=== PATIENT | female | born 1980 | race Hispanic/Latino ===

== ENCOUNTER 2021-07-27 04:47 | Emergency (ER) | payer OTHER ==
[~2021-07-27] VITALS: Ht 165.1 cm; Wt 86.2 kg
[2021-07-27] MEDS ORDERED: ONDANSETRON 4MG INJ ONE (05:24)
[2021-07-27] MEDS ORDERED: MORPHINE 2 MG SYG ONE (05:24)
[2021-07-27 05:29] LABS: BASOPHILS % (AUTO) 0.4 % (0.0-5.0); HEMATOCRIT 37.9 % (36-48); LYMPHOCYTES % (AUTO) 24.8 % (21.0-51.0); MEAN CORPUSCULAR HEMOGLOBIN 25.1 pg (27.0-33.0); MEAN CORPUSCULAR HGB CONC 31.4 g/dL (32.0-36.0); MONOCYTES % (AUTO) 8.8 % (3.0-13.0); NEUTROPHILS % (AUTO) 64.7 % (40.0-77.0); PLATELET COUNT (AUTO) 183 K/uL (130-400); RED BLOOD CELL COUNT(AUTO) 4.74 MIL/uL (4.00-5.50); RED CELL DISTRIBUTION WIDTH 15.6 % (11.0-15.5); WHITE BLOOD COUNT (AUTO) 6.9 K/uL (4.8-10.8)
[2021-07-27] MEDS ORDERED: MORPHINE 4 MG SYG IVP ONE (05:30)
[2021-07-27] MEDS ORDERED: ONDANSETRON 4MG INJ IVP ONE (05:30)
[2021-07-27] MEDS ORDERED: 0.9%NACL 1000ML 1,000 ML IV ONE (05:30)
[2021-07-27 05:39] LABS: CREATININE 0.8 mg/dL (0.5-1.5); POTASSIUM 3.8 mmol/L (3.5-5.1)
[2021-07-27 05:44] LABS: ALBUMIN 3.8 g/dL (3.5-5.0); BILIRUBIN,TOTAL 0.3 mg/dL (0.2-1.0); TOTAL PROTEIN, SERUM 7.6 g/dL (6.0-8.3)
[2021-07-27 05:48] VITALS: BP 153/90
== END 2021-07-27 06:25 | disposition home or self-care (01) ==
LOC: EDH 04:47
DX: N20.1 Calculus of ureter (principal); Z79.899 Other long term (current) drug therapy
CPT/HCPCS: 36415; 74176; 80053; 83690; 85025; 96374; 96375; 99284; J2405

== ENCOUNTER 2023-01-16 21:07 | Emergency (ER) | payer OTHER ==
[~2023-01-16] VITALS: Ht 167.6 cm; Wt 81.6 kg
[2023-01-16 21:09] VITALS: BP 128/77
== END 2023-01-16 23:28 | disposition left against medical advice (07) ==
LOC: EDH 21:07
DX: R42 Dizziness and giddiness (principal); Z53.21 Procedure and treatment not carried out due to patient leaving prior to being seen by health care provider

== ENCOUNTER 2023-01-17 09:19 | Emergency (ER) | payer OTHER ==
[~2023-01-17] VITALS: Ht 167.6 cm; Wt 82.6 kg
[2023-01-17 09:20] VITALS: BP 114/68
[2023-01-17 09:56] LABS: BASOPHILS % (AUTO) 0.5 % (0.0-5.0); EOSINOPHILS % (AUTO) 1.5 % (0.0-8.0); HEMATOCRIT 21.9 % (36-48); LYMPHOCYTES % (AUTO) 22.1 % (21.0-51.0); MEAN CORPUSCULAR HEMOGLOBIN 17.7 pg (27.0-33.0); MEAN CORPUSCULAR HGB CONC 27.4 g/dL (32.0-36.0); MEAN CORPUSCULAR VOLUME 64.6 fL (79-99); MONOCYTES % (AUTO) 6.5 % (3.0-13.0); NEUTROPHILS % (AUTO) 68.7 % (40.0-77.0); NUCLEATED RED BLOOD CELLS 0.3 % (0.0-0.19); PLATELET COUNT (AUTO) 232 K/uL (130-400); RED BLOOD CELL COUNT(AUTO) 3.39 MIL/uL (4.00-5.50); RED CELL DISTRIBUTION WIDTH 22.8 % (11.0-15.5); WHITE BLOOD COUNT (AUTO) 5.8 K/uL (4.8-10.8)
[2023-01-17 10:05] LABS: CREATININE 0.8 mg/dL (0.5-1.5); POTASSIUM 3.9 mmol/L (3.5-5.1)
[2023-01-17 10:10] LABS: ALBUMIN 3.6 g/dL (3.5-5.0); TOTAL PROTEIN, SERUM 7.2 g/dL (6.0-8.3)
[2023-01-17 10:56] LABS: APPEARANCE,URINE CLEAR (CLEAR); BILIRUBIN,URINE NEGATIVE (NEGATIVE); COLOR,URINE LIGHT-YELLOW (YELLOW); GLUCOSE, URINE (UA) NEGATIVE (NEGATIVE); KETONES,URINE NEGATIVE (NEGATIVE); LEUKOCYTE ESTERASE ,URINE 75 Leu/uL (NEGATIVE); NITRATE,URINE NEGATIVE (NEGATIVE); OCCULT BLOOD,URINE SMALL (NEGATIVE); PH,URINE 5.5 (5.0-8.0); PROTEIN,URINE NEGATIVE (NEGATIVE); UROBILINOGEN,URINE 0.2 mg/dL (0.2-1.0)
[2023-01-17 10:57] LABS: HCG,QUALITATIVE URINE NEGATIVE (NEGATIVE)
[2023-01-17 11:12] LABS: MUCUS,URINE Few LPF (None Seen)
[2023-01-17 11:13] LABS: BACTERIA,URINE Few /HPF (None Seen); RBC,URINE 0-1 /HPF (0-1); WBC,URINE 0-1 /HPF (0-1)
== END 2023-01-17 19:22 | disposition home or self-care (01) ==
LOC: EDH 09:19
DX: D64.9 Anemia, unspecified (principal); N93.9 Abnormal uterine and vaginal bleeding, unspecified; J45.909 Unspecified asthma, uncomplicated; Z98.890 Other specified postprocedural states
CPT/HCPCS: 99285; 36430; 80053; 85025; 86850; 86900; 86901; 86923; 87088; 81001; 81025; 36415; 85007; P9016 ×2

== ENCOUNTER 2023-03-18 08:22 | Day surgery (SDC) | payer OTHER ==
[2023-03-16 09:42] LABS: BASOPHILS % (AUTO) 0.6 % (0.0-5.0); EOSINOPHILS % (AUTO) 4.3 % (0.0-8.0); HEMATOCRIT 41.1 % (36-48); LYMPHOCYTES % (AUTO) 35.3 % (21.0-51.0); MEAN CORPUSCULAR HEMOGLOBIN 25.8 pg (27.0-33.0); MEAN CORPUSCULAR HGB CONC 31.1 g/dL (32.0-36.0); MEAN CORPUSCULAR VOLUME 82.9 fL (79-99); MONOCYTES % (AUTO) 9.7 % (3.0-13.0); NEUTROPHILS % (AUTO) 49.9 % (40.0-77.0); PLATELET COUNT (AUTO) 224 K/uL (130-400); RED BLOOD CELL COUNT(AUTO) 4.96 MIL/uL (4.00-5.50); WHITE BLOOD COUNT (AUTO) 5.4 K/uL (4.8-10.8)
[2023-03-16 14:48] VITALS: BP 118/62
[~2023-03-18] VITALS: Ht 167.6 cm; Wt 84.8 kg
[2023-03-18] VITALS (23 sets, daily range): BP systolic 99–136; BP diastolic 51–67
[~2023-03-18 08:22] MED LIST: ACET325T51 PO; ALBU18HF7 IH
[2023-03-18] MEDS ORDERED: DEXAMETHASONE SOD PHOSPHATE 4 MG/ML 1ML VIAL ONE (08:58)
[2023-03-18] MEDS ORDERED: CEFAZOLIN SODIUM 2 GM VIAL ONE (08:58)
[2023-03-18] MEDS ORDERED: PHENAZOPYRIDINE HCL 200 MG TABLET ONE (08:59)
[2023-03-18] MEDS ORDERED: SCOPOLAMINE HYDROBROMIDE 1 EACH ADH..PATCH TD ONE (08:59)
[2023-03-18] MEDS ORDERED: METRONIDAZOLE 500MG/100ML BAG 100 ML ONE (08:59)
[2023-03-18] MEDS ORDERED: LACTATED RINGERS 1000ML 1,000 ML IV ONE (09:17)
[2023-03-18] MEDS ORDERED: LIDOCAINE PF 100MG/5ML (2%) SYRINGE 5ML ONE (10:23)
[2023-03-18] MEDS ORDERED: SUCCINYLCHOLINE 200MG/10ML SYR ONE (10:23)
[2023-03-18] MEDS ORDERED: DEXAMETHASONE SOD PHOSPHATE 10MG/ML 1ML VIAL ONE (10:23)
[2023-03-18] MEDS ORDERED: ONDANSETRON 4MG INJ ONE ×2 (10:24→15:52)
[2023-03-18] MEDS ORDERED: PROPOFOL 10 MG/ML 20ML VIAL IV ONE (10:24)
[2023-03-18] MEDS ORDERED: NEOSTIGMINE 5MG/5ML SYR IV ONE (10:24)
[2023-03-18] MEDS ORDERED: ROCURONIUM 10MG/1ML SYR 10 MG/ML ML ONE (10:24)
[2023-03-18] MEDS ORDERED: GLYCOPYRROLATE 1 MG/5 ML SYRINGE ONE (10:24)
[2023-03-18] MEDS ORDERED: MIDAZOLAM HCL 1 MG/ML 2ML VIAL ONE (10:24)
[2023-03-18] MEDS ORDERED: FENTANYL CITRATE PF 50 MCG/1 ML 2ML VIAL ONE (10:25)
[2023-03-18] MEDS ORDERED: CEFAZOLIN SODIUM 2 GM VIAL IVPB ONE (10:40)
[2023-03-18] MEDS ORDERED: BUPIVACAINE/PF 0.5% 30ML VIAL ONE (10:45)
[2023-03-18] MEDS ORDERED: LIDOCAINE 1%-EPI 1:100,000 20 ML VIAL IJ ONE ×2 (11:01→11:15)
[2023-03-18] MEDS ORDERED: BUPIVACAINE/PF 0.5% 30ML VIAL INJ ONE (11:15)
[2023-03-18] MEDS ORDERED: MEPERIDINE-PF 25 MG/ML SYG ONE (12:43)
[2023-03-18] MEDS ORDERED: KETOROLAC 30MG VIAL (30MG/ML) ONE (12:43)
[2023-03-18] MEDS ORDERED: MORPHINE 10MG VIAL ONE (15:52)
[2023-03-18] MEDS ORDERED: ACETAMINOPHEN 325 MG TAB ONE (16:26)
== END 2023-03-18 17:05 | disposition home or self-care (01) ==
LOC: DAH 08:22
PROVIDERS: ATTEND Obstetrics & Gynecology
DX: N93.9 Abnormal uterine and vaginal bleeding, unspecified (principal); Z20.822 Contact with and (suspected) exposure to COVID-19; N39.3 Stress incontinence (female) (male); N72 Inflammatory disease of cervix uteri; N88.8 Other specified noninflammatory disorders of cervix uteri; D25.9 Leiomyoma of uterus, unspecified; N83.8 Other noninflammatory disorders of ovary, fallopian tube and broad ligament; J45.909 Unspecified asthma, uncomplicated; D50.0 Iron deficiency anemia secondary to blood loss (chronic); F17.200 Nicotine dependence, unspecified, uncomplicated; Z98.891 History of uterine scar from previous surgery; Z82.49 Family history of ischemic heart disease and other diseases of the circulatory system; Z83.3 Family history of diabetes mellitus; Z80.0 Family history of malignant neoplasm of digestive organs; Z80.1 Family history of malignant neoplasm of trachea, bronchus and lung
CPT/HCPCS: 57288; 58571; S2900; 36415; 84703; 85025; 86850; 86900; 86901; 87426; A4344; J0330; J1100; J1885; J2001; J2175; J2250; J2270; J2405; J2704; J2710; J3010; J3490; J7030; J7120